=== PATIENT | male | born 2000 | race Caucasian/White ===

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

== ENCOUNTER → 2020-04-13 | Outpatient (CLI) | payer OTHER ==
--- NOTE | 2020-04-14 07:45 | MRI ---
MRI right shoulder without contrast INDICATION: Shoulder pain separation 2 weeks ago initial encounter TECHNIQUE: Noncontrast MR imaging right shoulder standard protocol FINDINGS: There is edema along the distal clavicle at the AC joint. No marked widening. No disruption of the coracoclavicular ligament complex. Mild bursal edema. There is evidence of posttraumatic osteolysis distal clavicle with mild resorption. Unfused os acromiale. Grade 1 AC separation. Subscapularis and long head bicep are intact. No coracoid fracture. Interstitial tendinosis and fissuring at the junction of the supraspinatus and infraspinatus with adjacent cystic change. No rotator cuff rupture or retraction this time. Minimal fraying superior labrum. No advanced muscle atrophy. 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
== END ==
LOC: MRI 10:23
PROVIDERS: ATTEND Family Medicine
DX: S46.011A Strain of muscle(s) and tendon(s) of the rotator cuff of right shoulder, initial encounter (principal); M89.511 Osteolysis, right shoulder; M89.211 Other disorders of bone development and growth, right shoulder; M75.81 Other shoulder lesions, right shoulder; R60.0 Localized edema